=== PATIENT | female | born 1995 | race Caucasian/White ===

== ENCOUNTER 2018-10-27 22:12 | Emergency (ER) | payer OTHER ==
[2018-10-28 00:20] LABS: Influenza A Molecular POSITIVE (Negative)
[2018-10-28] MEDS ORDERED: Ondansetron ODT TAB* 4 MG SL ONE (01:15)
[2018-10-28] MEDS ORDERED: Oseltamivir CAP* 75 MG CAP PO ONE (01:15)
--- NOTE | 2018-10-28 01:17 | ED ---
HPI Febrile Illness - HPI Summary HPI Summary: This patient is a 23 year old female presenting to [facility] with a chief complaint of febrile illness since yesterday. Patient states that her temperature has been fluctuating since yesterday and has been experiencing nausea, myalgia, and a headache. Patient additionally reports SOB, lack of appetite. The pain is rated 8/10 in severity. Symptoms aggravated by nothing. Symptoms alleviated by nothing. The patient treated the sx with Tylenol at 2030. - History of Current Complaint Chief Complaint: EDGeneral Time Seen by Provider: 10/28/18 01:07 Hx Obtained From: Patient Onset/Duration: Started Days Ago, Still Present Timing: Constant Initial Severity: Moderate Current Severity: Moderate Pain Intensity: 5 Pain Scale Used: 0-10 Numeric Aggravating Factors: Nothing Alleviating Factors: Nothing Associated Signs and Symptoms: Other: - nausea, myalgia, headache, SOB, lack of appetite - Allergy/Home Medications Allergies/Adverse Reactions: Allergies Allergy/AdvReac Type Severity Reaction Status Date / Time No Known Allergies Allergy Verified 10/27/18 22:18 PMH/Surg Hx/FS Hx/Imm Hx Previously Healthy: Yes Opthamlomology History: Denies: Hx Legally Blind EENT History: Denies: Hx Deafness Infectious Disease History: No Infectious Disease History: Denies: Traveled Outside the [place] in Last 30 Days - Family History Known Family History: Negative: Hypertension - Social History Occupation: Student Lives: With Family Alcohol Use: None Hx Substance Use: No Substance Use Type: Reports: None Hx Tobacco Use: No Smoking Status (MU): Never Smoked Tobacco Review of Systems Positive: Fever Positive: Shortness Of Breath Positive: Nausea, Other - lack of appetite Positive: Myalgia Positive: Headache All Other Systems Reviewed And Are Negative: Yes Physical Exam - Summary Physical Exam Summary: Appearance: Well-appearing, Well-nourished, lying in bed comfortably Skin: Warm, dry, no obvious rash Eyes: sclera anicteric, no conjunctival pallor ENT: mucous membranes moist, pharynx appears normal Neck: Supple, nontender Respiratory: Clear to auscultation, no signs of respiratory distress Cardiovascular: Normal S1, S2. No murmurs. Normal distal pulses in tibial and radial bilaterally. Abdomen: Soft, nontender, normal active bowel sounds present Musculoskeletal: Normal, Strength/ROM Intact Neurological: A&Ox3, awake and alert, mentation is normal, speech is fluent and appropriate Psychiatric: affect is normal, does not appear anxious or depressed Triage Information Reviewed: Yes Vital Signs On Initial Exam: Initial Vitals Temp Pulse Resp BP Pulse Ox 99.2 F 129 16 136/92 97 10/27/18 22:16 10/27/18 22:16 10/27/18 22:16 10/27/18 22:16 10/27/18 22:16 Vital Signs Reviewed: Yes Diagnostics - Vital Signs Vital Signs Temp Pulse Resp BP Pulse Ox 10/28/18 00:18 99.8 F 119 16 124/69 98 10/27/18 22:16 99.2 F 129 16 136/92 97 - Laboratory Lab Results: Lab Results 10/28/18 Range/Units 00:16 Influenza A (Rapid) Positive A (Negative) Lab Statement: Any lab studies that have been ordered have been reviewed, and results considered in the medical decision making process. Course/Dx - Course Course Of Treatment: This patient is a 23 year old female presenting to [facility] with a chief complaint of febrile illness since yesterday. Patient states that her temperature has been fluctuating since yesterday and has been experiencing nausea, myalgia, and a headache. Patient additionally reports SOB, lack of appetite. Patient will be discharged with a dx of influenza. Patient is advised to follow up with PCP in 3 days. The patient is agreeable with this plan. - Diagnoses Provider Diagnoses: Influenza Discharge - Sign-Out/Discharge Documenting (check all that apply): Patient Departure Patient Received Moderate/Deep Sedation with Procedure: No - Discharge Plan Condition: Stable Disposition: HOME Prescriptions: Ondansetron ODT TAB* [Zofran 4 MG Odt TAB*] 8 mg PO Q6H PRN #14 tab.odt PRN Reason: Nausea Oseltamivir CAP* [Tamiflu CAP*] 75 mg PO BID #10 cap Patient Education Materials: Influenza (ED) Referrals: [facility] [Outside] No Primary Care Phys,[facility] [Primary Care Provider] - - Billing Disposition and Condition Condition: STABLE Disposition: Home - Attestation Statements Document Initiated by Scribe: Yes Documenting Scribe: Mario Taylor Provider For Whom Scribe is Documenting (Include Credential): MD Bry Hendrixibe Attestation: Mario Park scribed for Kishore Ny MD on 10/28/18 at 0442. Scribe Documentation Reviewed: Yes Provider Attestation: The documentation as recorded by the bryibMario grant accurately reflects the service I personally performed and the decisions made by me, Kishore Ny MD Status of Scribjuanita Document: Viewed
[2018-10-28 01:41] VITALS: BP 118/74
== END 2018-10-28 01:30 | disposition home or self-care (01) ==
LOC: ED 22:12
DX: J10.1 Influenza due to other identified influenza virus with other respiratory manifestations (principal); R06.02 Shortness of breath
CPT/HCPCS: 99282; A9270-GY